=== PATIENT | male | born 1975 | race Caucasian/White ===

== ENCOUNTER 2018-12-03 14:41 | Emergency (ER) | payer BC, OTHER ==
[2018-12-03] MEDS ORDERED: hydrALAZINE IV* 20 MG/ML VIAL IV SLOW PU ONE ×3 (15:37→17:33)
[2018-12-03 15:58] LABS: ABS Basophils 0.1 10^3/ul (0-0.2); ABS Eosinophils 0.1 10^3/ul (0-0.6); ABS Lymphocytes 3.4 10^3/ul (1.0-4.8); ABS Monocytes 0.4 10^3/ul (0-0.8); ABS Neutrophils 3.3 10^3/ul (1.5-7.7); ABS Nucleated RBC 0 10^3/ul; Eosinophil % 1.9 %; Hematocrit 41 % (36-46); Hemoglobin 14.1 g/dL (14.0-18.0); Lymphocyte % 46.5 %; Mean Corpuscular HGB Conc 34 g/dL (31-36); Mean Corpuscular Hemoglobin 30 pg (27-31); Mean Corpuscular Volume 88 fL (80-94); Mean Platelet Volume 7.6 fL (7.4-10.4); Nucleated Red Blood Cells % 0; Platelet Count 285 10^3/uL (150-450); Red Blood Count 4.69 10^6 /uL (4.18-5.48); Red Cell Distribution Width 13 % (10.5-15); White Blood Count 7.4 10^3/uL (3.5-10.8)
[2018-12-03 16:15] LABS: ALT 16 U/L (7-52); AST 20 U/L (13-39); Albumin 4.3 g/dL (3.2-5.2); Albumin/Globulin Ratio 1.7 (1-3); Alkaline Phosphatase 55 U/L (34-104); Anion Gap 5 mmol/L (2-11); BUN/Creatinine Ratio 12.2 (8-20); Blood Urea Nitrogen 11 mg/dL (6-24); C Reactive Protein < 1.00 mg/L (<8.01); CO2 Carbon Dioxide 28 mmol/L (22-32); Calcium 9.5 mg/dL (8.6-10.3); Chloride 107 mmol/L (101-111); EGFR Non-African American 92.5 (>60); Globulin 2.6 g/dL (2-4); Glucose 92 mg/dL (70-100); Potassium 4.2 mmol/L (3.5-5.0); Sodium 140 mmol/L (135-145); Total Protein 6.9 g/dL (6.4-8.9)
[2018-12-03 16:17] LABS: Troponin I 0.03 ng/mL (<0.04)
[2018-12-03] MEDS ORDERED: Lisinopril TAB* 10 MG PO ONE (17:33)
[2018-12-03] MEDS ORDERED: cloNIDine TAB* 0.1 MG PO ONE (17:47)
--- NOTE | 2018-12-03 20:02 | ED ---
Progress - Progress Note Progress Note: patient signed out by Josefa LOPEZ pending re-evaluation of blood pressure. Re-Evaluation - Re-Evaluation First Eval Re-Evaluation Time: 19:45 Comment: bp 158/107 Course/Dx - Course Course Of Treatment: patient signed out by josefa LOPEZ pending decrease in blood pressure. patient denies any chest pain or SOB. present for HTN. was given hydrazaline and lisinopril with no effect. given clondine and bp was 157/107 on re-eval. patient feels safe to go home. will discharge on lisinopril. told to follow up with primary to have meds adjusted as needed. patient understand and agrees with plan. - Diagnoses Provider Diagnoses: Hypertension Discharge - Sign-Out/Discharge Documenting (check all that apply): Patient Departure, Receiving Sign-Out Receiving patient FROM: Josefa Hodge Patient Received Moderate/Deep Sedation with Procedure: No - Discharge Plan Condition: Good Disposition: HOME Prescriptions: Lisinopril TAB* [Prinivil TAB 10 MG*] 10 mg PO DAILY #14 tab Patient Education Materials: Hypertension (ED) Referrals: Clary López MD [Primary Care Provider] - Additional Instructions: watch salt intake Take lisinopril once a daily Follow up with primary within a week Return to ED if develop any chest pain or any new or worsening symptoms - Billing Disposition and Condition Condition: GOOD Disposition: Home
[2018-12-03 20:35] VITALS: BP 145/100
--- NOTE | 2018-12-04 06:14 | ED ---
Hypertension - HPI Summary HPI Summary: The patient is a 43-year-old male with a new onset of hypertension presenting to the ED with 1 episode of misternal chest pain which occurred last week, rated a 2/10. Denies sxs currently. States he comes in today concern for his HTN. He has never been seen for this before and has been taking his BP over the past 2 week himself and has noted it to be high between 165/100 to 210/133. He has not seen a PCP for this and has never been on medications. Denies smoking hx. Drinks 3-4 times per week. Denies any renal dysfunction. Denies urinary sxs, WILKINSON, visual disturbances, abd pain, N/V. - History of Current Complaint Chief Complaint: EDHypertension Stated Complaint: HIGH BP PER PT Time Seen by Provider: 12/03/18 15:16 Hx Obtained From: Patient Onset/Duration: Started Hours Ago Timing: Constant Associated Signs & Symptoms: Negative - Risk Factors Cardiac Risk Factors: Negative - Allergies/Home Medications Allergies/Adverse Reactions: Allergies Allergy/AdvReac Type Severity Reaction Status Date / Time shellfish derived Allergy Airway Verified 12/03/18 14:56 Obstruction Home Medications: Home Medications Bupropion XL* [Wellbutrin XL *] 150 mg PO DAILY 12/03/18 [History Confirmed ] PMH/Surg Hx/FS Hx/Imm Hx Previously Healthy: Yes - Immunization History Date of Influenza Vaccine: no Immunizations Up to Date: Yes Infectious Disease History: No Infectious Disease History: Denies: Traveled Outside the [place] in Last 30 Days - Social History Occupation: Employed Full-time Lives: With Family Alcohol Use: Weekly Alcohol Amount: 2-3 beers, once a month will drink sevral Hx Substance Use: Yes Substance Use Type: Reports: Marijuana Hx Tobacco Use: Yes Smoking Status (MU): Former Smoker Review of Systems Constitutional: Negative Negative: Fever, Chills, Fatigue, Skin Diaphoresis Negative: Blurred Vision, Diplopia, Drainage, Erythema Negative: Sore Throat Positive: Chest Pain Negative: Shortness Of Breath, Cough Negative: Abdominal Pain, Vomiting, Diarrhea, Nausea Positive: see HPI Negative: Arthralgia, Myalgia All Other Systems Reviewed And Are Negative: Yes Physical Exam Triage Information Reviewed: Yes Vital Signs On Initial Exam: Initial Vitals Temp Pulse Resp BP Pulse Ox 98.6 F 62 23 195/133 96 12/03/18 14:52 12/03/18 14:52 12/03/18 14:52 12/03/18 14:52 12/03/18 14:52 Vital Signs Reviewed: Yes Appearance: Positive: Well-Appearing, Well-Nourished Skin: Positive: Warm, Skin Color Reflects Adequate Perfusion Head/Face: Positive: Normal Head/Face Inspection Eyes: Positive: EOMI, Conjunctiva Clear Neck: Positive: Supple, No Lymphadenopathy Respiratory/Lung Sounds: Positive: Clear to Auscultation, Breath Sounds Present Cardiovascular: Positive: RRR, Pulses are Symmetrical in both Upper and Lower Extremities Abdomen Description: Positive: Nontender Bowel Sounds: Positive: Present Neurological: Positive: Sensory/Motor Intact, Alert, Oriented to Person Place, Time, Speech Normal Psychiatric: Positive: Normal, Affect/Mood Appropriate Diagnostics - Vital Signs Vital Signs Temp Pulse Resp BP Pulse Ox 12/03/18 20:34 98.9 F 67 18 145/100 95 12/03/18 20:28 22 154/113 12/03/18 20:13 70 19 145/100 94 12/03/18 20:00 67 21 95 12/03/18 19:58 78 27 156/109 95 12/03/18 19:54 160/110 12/03/18 19:44 72 20 163/112 96 12/03/18 19:29 72 22 179/121 97 12/03/18 19:13 77 20 195/125 97 12/03/18 19:12 73 17 186/121 97 12/03/18 19:00 74 17 96 12/03/18 18:58 76 17 181/121 97 12/03/18 18:44 73 17 186/120 96 12/03/18 18:28 67 16 189/117 98 12/03/18 18:13 69 25 191/124 97 12/03/18 17:58 77 15 197/131 98 12/03/18 17:43 70 17 199/132 99 12/03/18 17:39 77 208/141 99 12/03/18 17:23 78 20 197/131 98 12/03/18 17:18 65 16 185/123 98 12/03/18 17:13 70 19 168/119 97 12/03/18 17:08 64 20 163/113 97 12/03/18 17:05 59 21 164/125 97 12/03/18 17:03 57 19 175/122 97 12/03/18 16:30 58 13 154/110 97 12/03/18 15:31 66 20 159/108 95 12/03/18 15:01 67 20 165/122 96 12/03/18 14:52 98.6 F 62 23 195/133 96 - Laboratory Lab Results: Lab Results 12/03/18 12/03/18 12/03/18 Range/Units 15:51 15:51 15:51 WBC 7.4 (3.5-10.8) 10^3/uL RBC 4.69 (4.18-5.48) 10^6 /uL Hgb 14.1 (14.0-18.0) g/dL Hct 41 (36-46) % MCV 88 (80-94) fL MCH 30 (27-31) pg MCHC 34 (31-36) g/dL RDW 13 (10.5-15) % Plt Count 285 (150-450) 10^3/uL MPV 7.6 (7.4-10.4) fL Neut % (Auto) 45.0 % Lymph % (Auto) 46.5 % [place] % (Auto) 5.9 % Eos % (Auto) 1.9 % Baso % (Auto) 0.7 % Absolute Neuts (auto) 3.3 (1.5-7.7) 10^3/ul Absolute Lymphs (auto) 3.4 (1.0-4.8) 10^3/ul Absolute Monos (auto) 0.4 (0-0.8) 10^3/ul Absolute Eos (auto) 0.1 (0-0.6) 10^3/ul Absolute Basos (auto) 0.1 (0-0.2) 10^3/ul Absolute Nucleated RBC 0 10^3/ul Nucleated RBC % 0 Sodium 140 (135-145) mmol/L Potassium 4.2 (3.5-5.0) mmol/L Chloride 107 (101-111) mmol/L Carbon Dioxide 28 (22-32) mmol/L Anion Gap 5 (2-11) mmol/L BUN 11 (6-24) mg/dL Creatinine 0.90 (0.67-1.17) mg/dL Est GFR ( Amer) 112.0 (>60) Est GFR (Non-Af Amer) 92.5 (>60) BUN/Creatinine Ratio 12.2 (8-20) Glucose 92 (70-100) mg/dL Lactic Acid 0.8 (0.5-2.0) mmol/L Calcium 9.5 (8.6-10.3) mg/dL Total Bilirubin 0.70 (0.2-1.0) mg/dL AST 20 (13-39) U/L ALT 16 (7-52) U/L Alkaline Phosphatase 55 (34-104) U/L Troponin I 0.03 (<0.04) ng/mL C-Reactive Protein < 1.00 (<8.01) mg/L B-Natriuretic Peptide (<=100) pg/mL Total Protein 6.9 (6.4-8.9) g/dL Albumin 4.3 (3.2-5.2) g/dL Globulin 2.6 (2-4) g/dL Albumin/Globulin Ratio 1.7 (1-3) 12/03/18 Range/Units 15:51 WBC (3.5-10.8) 10^3/uL RBC (4.18-5.48) 10^6 /uL Hgb (14.0-18.0) g/dL Hct (36-46) % MCV (80-94) fL MCH (27-31) pg MCHC (31-36) g/dL RDW (10.5-15) % Plt Count (150-450) 10^3/uL MPV (7.4-10.4) fL Neut % (Auto) % Lymph % (Auto) % [place] % (Auto) % Eos % (Auto) % Baso % (Auto) % Absolute Neuts (auto) (1.5-7.7) 10^3/ul Absolute Lymphs (auto) (1.0-4.8) 10^3/ul Absolute Monos (auto) (0-0.8) 10^3/ul Absolute Eos (auto) (0-0.6) 10^3/ul Absolute Basos (auto) (0-0.2) 10^3/ul Absolute Nucleated RBC 10^3/ul Nucleated RBC % Sodium (135-145) mmol/L Potassium (3.5-5.0) mmol/L Chloride (101-111) mmol/L Carbon Dioxide (22-32) mmol/L Anion Gap (2-11) mmol/L BUN (6-24) mg/dL Creatinine (0.67-1.17) mg/dL Est GFR ( Amer) (>60) Est GFR (Non-Af Amer) (>60) BUN/Creatinine Ratio (8-20) Glucose (70-100) mg/dL Lactic Acid (0.5-2.0) mmol/L Calcium (8.6-10.3) mg/dL Total Bilirubin (0.2-1.0) mg/dL AST (13-39) U/L ALT (7-52) U/L Alkaline Phosphatase (34-104) U/L Troponin I (<0.04) ng/mL C-Reactive Protein (<8.01) mg/L B-Natriuretic Peptide 59 (<=100) pg/mL Total Protein (6.4-8.9) g/dL Albumin (3.2-5.2) g/dL Globulin (2-4) g/dL Albumin/Globulin Ratio (1-3) Result Diagrams: 12/03/18 15:51 12/03/18 15:51 Lab Statement: Any lab studies that have been ordered have been reviewed, and results considered in the medical decision making process. Re-Evaluation - Re-Evaluation First Eval Re-Evaluation Time: 19:45 Comment: bp 158/107 Hypertension Course/Dx - Course Course Of Treatment: Discussed case with Dr. Garcia. On arrival, BP noted to be 195/133. 5mg IV hydralazine given with no effect on BP. BP 208/141. Subsequent clonidine given .1mg and signed out patient to Bijal Vega PA-C awaiting decrease in BP. Labs all WNL. Silvia note:Patient signed out by km LOPEZ pending decrease in blood pressure. patient denies any chest pain or SOB. present for HTN. was given hydrazaline and lisinopril with no effect. given clondine and bp was 157/107 on re-eval. patient feels safe to go home. will discharge on lisinopril. told to follow up with primary to have meds adjusted as needed. patient understand and agrees with plan. - Diagnoses Provider Diagnoses: Hypertension Discharge - Sign-Out/Discharge Documenting (check all that apply): Patient Departure Patient Received Moderate/Deep Sedation with Procedure: No - Discharge Plan Condition: Good Disposition: HOME Prescriptions: Lisinopril TAB* [Prinivil TAB 10 MG*] 10 mg PO DAILY #14 tab Patient Education Materials: Hypertension (ED) Referrals: Clary López MD [Primary Care Provider] - Additional Instructions: watch salt intake Take lisinopril once a daily Follow up with primary within a week Return to ED if develop any chest pain or any new or worsening symptoms - Billing Disposition and Condition Condition: GOOD Disposition: Home
== END 2018-12-03 20:34 | disposition home or self-care (01) ==
LOC: ED 14:41
DX: I10 Essential (primary) hypertension (principal); R00.1 Bradycardia, unspecified; Z87.891 Personal history of nicotine dependence
CPT/HCPCS: 36415; 71046; 80053; 83605; 83880; 84484; 85025; 86140; 93005; 96374; 96376; 99284; A9270-GY; J0360